=== PATIENT | male | born 1985 | race Caucasian/White ===

== ENCOUNTER → 2019-09-15 | Outpatient (CLI) | payer BC ==
[~2019-09-15] MED LIST: HYDR-2890 PO
--- NOTE | 2019-09-15 14:08 | Diagnostic Imaging Report ---
EXAMINATION: Magnetic resonance imaging of the left knee without intravenous contrast DATE: September 15, 2019. COMPARISON: None. INDICATION: 34-year-old male, injury of the left knee. TECHNIQUE: Multiplanar, multisequence non contrast enhanced MR imaging was accomplished. FINDINGS: MENISCI: The medial meniscus is intact. The lateral meniscus is intact. LIGAMENTS AND TENDONS: The patient is status post anterior cruciate ligament reconstruction. The graft is intact. The posterior cruciate ligament is intact. The medial collateral ligament is intact. The iliotibial band, mid third lateral capsular ligament, fibular collateral ligament, biceps femoris tendon and conjoined tendon are intact. There are postoperative related changes of the patellar tendon which is otherwise intact. The distal quadriceps tendon is intact. JOINT: There is a full-thickness signal abnormality in the cartilage of the medial patellar facet measuring 3 mm in width. The medial and lateral compartment cartilage is intact. There is no knee joint effusion, prominent synovitis, or intra-articular body. BONE: There are tibial and femoral tunnels for the anterior cruciate ligament reconstruction. There is no acute fracture, bone contusion, or evidence of osteonecrosis. BURSAE AND SOFT TISSUES: There is a small slitlike Patel's cyst. IMPRESSION: 1. Intact medial and lateral meniscus. 2. Status post anterior cruciate ligament with intact graft. Intact posterior cruciate ligament. Additional ligaments and tendons are intact. 3. Mild patellofemoral compartment osteoarthritis. No knee joint effusion. 4. No acute fracture, bone contusion, or evidence of osteonecrosis. 5. Small slitlike Patel's cyst. Dictated by: Dictated on workstation # [id number]
== END ==
LOC: RAD 13:03
PROVIDERS: ATTEND Nurse Practitioner
DX: M17.12 Unilateral primary osteoarthritis, left knee (principal); M71.22 Synovial cyst of popliteal space [Baker], left knee; S86.812D Strain of other muscle(s) and tendon(s) at lower leg level, left leg, subsequent encounter; S83.282D Other tear of lateral meniscus, current injury, left knee, subsequent encounter
CPT/HCPCS: 73721

== ENCOUNTER 2020-03-30 09:21 | Emergency (ER) | payer BC, OTHER ==
[~2020-03-30] VITALS: Ht 182 cm; Wt 102.0 kg
[~2020-03-30 09:21] MED LIST changes: -LOSA50TA63
[2020-03-30 09:37] LABS: BASOPHILS % (AUTO) 0 % (0-10); EOSINOPHILS # (AUTO) 0.2 10^3/uL (0.0-0.3); EOSINOPHILS % (AUTO) 2 % (0-10); HEMATOCRIT 45 % (40-54); HEMOGLOBIN 15.4 G/DL (13.3-17.7); LYMPHOCYTES # (AUTO) 2.2 X 10^3 (1.0-4.0); LYMPHOCYTES % (AUTO) 26 % (12-44); MEAN CORPUSCULAR HEMOGLOBIN 28 PG (25-34); MEAN CORPUSCULAR HGB CONC 34 G/DL (32-36); MEAN CORPUSCULAR VOLUME 81 FL (80-99); MEAN PLATELET VOLUME 9.9 FL (7.4-10.4); MONOCYTES # (AUTO) 0.8 X 10^3 (0.0-1.0); MONOCYTES % (AUTO) 10 % (0-12); NEUTROPHILS # (AUTO) 5.3 X 10^3 (1.8-7.8); NEUTROPHILS % (AUTO) 62 % (42-75); PLATELET COUNT 294 10^3/uL (130-400); WHITE BLOOD COUNT 8.4 10^3/uL (4.3-11.0)
[2020-03-30] MEDS ORDERED: LOSA50TA63 (09:42)
[2020-03-30 09:55] LABS: ALBUMIN 4.5 GM/DL (3.2-4.5); CHLORIDE 104 MMOL/L (98-107); POTASSIUM 4.3 MMOL/L (3.6-5.0); SODIUM 136 MMOL/L (135-145)
[2020-03-30 09:56] LABS: CALCIUM 9.2 MG/DL (8.5-10.1); PROTHROMBIN TIME PATIENT 13.5 SEC (12.2-14.7)
[2020-03-30 09:57] LABS: GLUCOSE 99 MG/DL (70-105); TOTAL PROTEIN 7.3 GM/DL (6.4-8.2)
[2020-03-30 09:58] LABS: CARBON DIOXIDE 26 MMOL/L (21-32)
[2020-03-30 09:59] LABS: BILIRUBIN,TOTAL 0.5 MG/DL (0.1-1.0)
[2020-03-30 10:01] LABS: ALKALINE PHOSPHATASE 74 U/L (40-136); CREATININE SERUM 0.89 MG/DL (0.60-1.30); GFR ESTIMATED > 60
[2020-03-30 10:02] LABS: BUN/CREATININE RATIO 17
--- NOTE | 2020-03-30 10:02 | Diagnostic Imaging Report ---
INDICATION: Chest tightness. TECHNIQUE: A frontal chest was obtained at 10:00 AM. FINDINGS: The heart and mediastinal silhouette are normal in appearance. The lungs appear clear. There is no pneumothorax or pleural fluid. IMPRESSION: Negative chest. Dictated by: Dictated on workstation # [id number]
[2020-03-30 10:04] LABS: ALANINE AMINOTRANSFERASE 22 U/L (0-55)
--- NOTE | 2020-03-30 10:06 | ED Chest Pain ---
General Chief Complaint: Chest Pain Stated Complaint: CHEST PAIN Nursing Triage Note: ARRIVED VIA AMB TO ROOM 03 WITHOUT DIFFICULTY. COMPLAINS OF CHEST TIGHTNESS X24 HOURS. SENT OVER FROM DR BREWSTER OFFICE. Nursing Sepsis Screen: No Definite Risk Source: patient Exam Limitations: no limitations History of Present Illness Date Seen by Provider: Mar 30, 2020 Time Seen by Provider: 09:23 Initial Comments Here with report of intermittent chest tightness that is central and nonradiating. Onset yesterday. Does not last long. Does note that it comes and goes and happens regardless of activity. It is not reproducible. Denies any recent injury. Does have history of hypertension and admits that he did not take his medicine yesterday. He states he's pretty good about it but not daily. Follows with Dr. Vance. Denies nausea, vomiting, sweating, weakness or other concerns. Seen at [facility] [facility] urgent care. ASA 324 mg by mouth administered there. Timing/Duration: 24 hours, intermittent Severity/Quality: moderate, tightness Location: central Radiation: no radiation Activities at Onset: none Prior CP/Workup: no prior chest pain, no prior cardiac workup ASA po MIGRATORY FARM HAND: Yes NTG SL MIGRATORY FARM HAND: No Associated Symptoms: No abdominal pain, No back pain, No diaphoresis, No dizziness, No fatigue, No fever/chills, No nausea/vomiting, No shortness of breath, No weakness Allergies and Home Medications Allergies Coded Allergies: No Known Drug Allergies (Unverified , 12/05/11) Home Medications Hydrocodone Bit/Acetaminophen 1 Each Tablet, 1 EACH PO NEEDED Prescribed by: RUPINDER MELCHOR on 12/05/11 3997 Patient Home Medication List Home Medication List Reviewed: Yes Review of Systems Review of Systems Constitutional: see HPI; No chills, No fever EENTM: No Symptoms Reported Respiratory: Denies Cough, Denies Shortness of Air Cardiovascular: Chest Pain; Denies Edema Gastrointestinal: Denies Abdomen Distended, Denies Nausea, Denies Vomiting Genitourinary: No Symptoms Reported Musculoskeletal: No joint pain, No muscle pain Skin: no symptoms reported Psychiatric/Neurological: No Symptoms Reported Past Azrpjgz-Vyfzlp-Hooiht Hx Past Med/Social Hx: Reviewed Nursing Past Med/Soc Hx Patient Social History Alcohol Use: Denies Use Recreational Drug Use: No Smoking Status: Never a Smoker Recent Foreign Travel: No Contact w/Someone Who Travel: No Recent Infectious Disease Expo: No Recent Hopitalizations: No Past Medical History Surgeries: Yes Orthopedic Respiratory: No Cardiac: Yes Hypertension Neurological: No Genitourinary: No Gastrointestinal: No Musculoskeletal: No Endocrine: No HEENT: No Cancer: No Psychosocial: No Integumentary: No Family Medical History Reviewed Nursing Family Hx Heart Disease Physical Exam Vital Signs Vital Signs - First Documented 03/30/20 09:21 Temp 37.0 Pulse 75 Resp 16 B/P (MAP) 147/89 (108) Pulse Ox 98 O2 Delivery Room Air Capillary Refill : Less Than 3 Seconds Height, Weight, BMI Height: '" Weight: lbs. oz. kg; 30.00 BMI Method:Stated General Appearance: No Apparent Distress, WD/WN HEENT: PERRL/EOMI, Pharynx Normal Neck: Non Tender, Supple Respiratory: Chest Non Tender, Lungs Clear, Normal Breath Sounds Cardiovascular: Regular Rate, Rhythm, No Murmur Gastrointestinal: Non Tender, Soft Extremity: Normal Range of Motion, Non Tender Neurologic/Psychiatric: Alert, Oriented x3 Skin: Normal Color, Warm/Dry Progress/Results/Core Measures Results/Orders Lab Results Laboratory Tests Test 03/30/20 09:30 Range/Units White Blood Count 8.4 4.3-11.0 10^3/uL Red Blood Count 5.57 4.35-5.85 10^6/uL Hemoglobin 15.4 13.3-17.7 G/DL Hematocrit 45 40-54 % Mean Corpuscular Volume 81 80-99 FL Mean Corpuscular Hemoglobin 28 25-34 PG Mean Corpuscular Hemoglobin Concent 34 32-36 G/DL Red Cell Distribution Width 13.5 10.0-14.5 % Platelet Count 294 130-400 10^3/uL Mean Platelet Volume 9.9 7.4-10.4 FL Neutrophils (%) (Auto) 62 42-75 % Lymphocytes (%) (Auto) 26 12-44 % Monocytes (%) (Auto) 10 0-12 % Eosinophils (%) (Auto) 2 0-10 % Basophils (%) (Auto) 0 0-10 % Neutrophils # (Auto) 5.3 1.8-7.8 X 10^3 Lymphocytes # (Auto) 2.2 1.0-4.0 X 10^3 Monocytes # (Auto) 0.8 0.0-1.0 X 10^3 Eosinophils # (Auto) 0.2 0.0-0.3 10^3/uL Basophils # (Auto) 0.0 0.0-0.1 10^3/uL Prothrombin Time 13.5 12.2-14.7 SEC INR Comment 1.0 0.8-1.4 Activated Partial Thromboplast Time 34 24-35 SEC D-Dimer < 0.27 0.00-0.49 UG/ML Sodium Level 136 135-145 MMOL/L Potassium Level 4.3 3.6-5.0 MMOL/L Chloride Level 104 98-107 MMOL/L Carbon Dioxide Level 26 21-32 MMOL/L Anion Gap 6 5-14 MMOL/L Blood Urea Nitrogen 15 7-18 MG/DL Creatinine 0.89 0.60-1.30 MG/DL Estimat Glomerular Filtration Rate > 60 BUN/Creatinine Ratio 17 Glucose Level 99 70-105 MG/DL Calcium Level 9.2 8.5-10.1 MG/DL Corrected Calcium 8.8 8.5-10.1 MG/DL Magnesium Level 2.0 1.6-2.4 MG/DL Total Bilirubin 0.5 0.1-1.0 MG/DL Aspartate Amino Transf (AST/SGOT) 20 5-34 U/L Alanine Aminotransferase (ALT/SGPT) 22 0-55 U/L Alkaline Phosphatase 74 40-136 U/L Myoglobin 41.3 10.0-92.0 NG/ML Troponin I < 0.028 <0.028 NG/ML Total Protein 7.3 6.4-8.2 GM/DL Albumin 4.5 3.2-4.5 GM/DL My Orders Orders - TAMEKA OLIVERA MD Cbc With Automated Diff (03/30/20) Magnesium (03/30/20:) Chest 1 View, Ap/Pa Only (03/30/20) Ekg Tracing (03/30/20) Comprehensive Metabolic Panel (03/30/20) Myoglobin Serum (03/30/20) Protime With Inr (03/30/20) Partial Thromboplastin Time (03/30/20) O2 (03/30/20) Monitor-Rhythm Ecg Trace Only (9/22/20 09:25) Lipid Panel (03/31/20 06:00) Ed Iv/Invasive Line Start (03/30/20 09:25) Troponin I (03/30/20 09:25) Fibrin Degradation Products (03/30/20 09:39) Vital Signs/I&O 03/30/20 09:21 Temp 37.0 Pulse 75 Resp 16 B/P (MAP) 147/89 (108) Pulse Ox 98 O2 Delivery Room Air Blood Pressure Mean: 108 Progress Progress Note : Progress Note Seen and evaluated. IV, labs, EKG and chest x-ray ordered. Blood pressure improved down patient states that he actually feels much better now after taking his blood pressure medicine this morning. Monitor patient. 1135: Remains free of persistent pain. Occasionally has twinges. Patient admits to drinking 10-14 coffee a day. We will give Pepcid 20 mg IV now. Toradol 30 mg IV ordered as well. I discussed the case with Dr. Faust and he will see the patient and office today at 1330. I will send a copy of the chart over to him. Discharged home with return precautions. Patient verbalize understanding instructions and agreement with plan. Initial ECG Impression Date: Mar 30, 2020 Initial ECG Impression Time: 09:21 Initial ECG Rate: 69 Initial ECG Rhythm: Normal Sinus Initial ECG Impression: Normal Initial ECG Comparisson: No Previous ECG Available Comment Sinus rhythm with normal but leftward axis. No evidence of ST elevation OR. No previous available for comparison. Interpreted by me. Diagnostic Imaging Diagonstic Imaging: Xray Plain Films/CT/US/NM/MRI: chest Comments [facility] [place] [place] NAME: [facility]ITU [facility]DA[facility] REC#: [id number] PT STATUS: REG ER : 1985 PHYSICIAN: TAMEKA OLIVERA MD ADMIT DATE: 03/30/20/ER Signed Date of Exam:03/30/20 CHEST 1 VIEW, AP/PA ONLY INDICATION: Chest tightness. TECHNIQUE: A frontal chest was obtained at 10:00 AM. FINDINGS: The heart and mediastinal silhouette are normal in appearance. The lungs appear clear. There is no pneumothorax or pleural fluid. IMPRESSION: Negative chest. Dictated by: Dictated on workstation # [id number] Dict: 03/30/20 1001 Trans: 03/30/20 1108 [id number] Interpreted by: MATT MONSALVE MD Electronically signed by: MATT MONSALVE MD 03/30/20 1108 Reviewed: Reviewed by Me Departure Impression Primary Impression: Chest pain Qualified Codes: R07.9 - Chest pain, unspecified Disposition: 01 HOME, SELF-CARE Condition: Stable Departure-Patient Inst. Decision time for Depature: 11:42 Referrals: ALEXIS VANCE DO (PCP/Family) Primary Care Physician FARIHA FAUST MD Patient Instructions: Chest Pain (DC) Add. Discharge Instructions: All discharge instructions reviewed with patient and/or family. Voiced understanding. You may take Pepcid or the generic famotidine 20 mg daily as needed for stomach upset. You should decrease your coffee intake daily. Follow-up with Dr. Faust today at his office at 1:30 PM. Return for worse pain, weakness, breathing problems, sweating, vomiting or other concerns as needed. Work/School Note: Work Release Form Date Seen in the Emergency Department: Mar 30, 2020 Return to Work: Mar 31, 2020 Restrictions: No Restrictions Copy Copies To 1: FARIHA FAUST MD, TIMOTHY D MD Mar 30, 2020 10:06
--- NOTE | 2020-03-30 10:32 | NUR ---
RESTING IN BED ET DENIES NEEDS AT THIS TIME.
--- NOTE | 2020-03-30 11:28 | NUR ---
IN TALKING TO THE PT AT THIS TIME.
[2020-03-30] MEDS ORDERED: FAMOTIDINE 20MG/2ML IV (PEPCID) IV STA (11:40)
[2020-03-30] MEDS ORDERED: KETOROLAC 30 MG/ML VIAL IVP STA (11:40)
[2020-03-30 11:53] VITALS: BP 141/78
== END 2020-03-30 11:53 | disposition home or self-care (01) ==
LOC: EDUNIT# 09:21 → ER 09:24
DX: R07.9 Chest pain, unspecified (principal); Z82.49 Family history of ischemic heart disease and other diseases of the circulatory system
CPT/HCPCS: 36415; 71045; 80053; 83735; 83874; 84484; 85025; 85379; 85610; 85730; 93005; 93041

== ENCOUNTER → 2020-03-30 | Outpatient (CLI) | payer OTHER ==
[~2020-03-30] MED LIST changes: +LOSA50TA63
== END ==
LOC: CARD 14:57
PROVIDERS: ATTEND Internal Medicine Cardiovascular Disease
DX: I11.9 Hypertensive heart disease without heart failure (principal); Z82.49 Family history of ischemic heart disease and other diseases of the circulatory system
CPT/HCPCS: 93306

== ENCOUNTER → 2020-03-31 | Outpatient (CLI) | payer OTHER ==
[~2020-03-31] VITALS: Ht 185 cm; Wt 125.0 kg
[~2020-03-31] MED LIST changes: +CATHETER FLUSH 10 ML SYR IV PRN; +LOSA50TA63
[2020-03-31 09:04] VITALS: BP 128/74
--- NOTE | 2020-03-31 11:14 | Cardiology Stress Test Report ---
Stress Test Report Date of Procedure/Referring: Date of Procedure: Mar 31, 2020 PCP Fariha Faust MD Admitting Physician Juaquin Welch DO Indications: Chest pain Baseline Blood Pressure: Blood Pressure Systolic: 128 Blood Pressure Diastolic: 74 Vital Signs Date Time Temp Pulse Resp B/P (MAP) Pulse Ox O2 Delivery O2 Flow Rate FiO2 03/31/20 09:04 58 14 128/74 (92) 99 Room Air Baseline Vital Signs Vital Signs Date Time Temp Pulse Resp B/P (MAP) Pulse Ox O2 Delivery O2 Flow Rate FiO2 03/31/20 09:04 58 14 128/74 (92) 99 Room Air Baseline EKG: Baseline EKG: normal sinus rhythm Summary: After explaining the procedure and details to the patient, he signed the consent and was brought to the stress nuclear laboratory. Patient exercised on standard Leon protocol, EKG, heart rate and blood pressure were monitored continuously, resting and stress doses of radio tracer were injected, imaging was acquired and reviewed in the short axis, horizontal long axis and vertical long axis views Patient was able to exercise for a total of 11 minutes on Leon protocol, METs 12.1 Maximum heart rate 166 Maximum blood pressure 233/61 Stress EKG, Minimal nondiagnostic changes Recovery EKG, Return to baseline TID: 0.99 SSS: 0 SDS: 0 EF: 57 Conclusion: 1. Excellent exercise tolerance for a total of 11 minutes on standard Leon protocol, 12.1 METs achieving 90 percent of maximum expected heart rate 2. Hypertensive response to exercise with peak blood pressure 233/61 and return to baseline during recovery 3. Minimal nondiagnostic EKG changes with exercise returned to baseline during recovery 4. Typical male pattern with no significant ischemia or infarction on SPECT images 5. Normal left ventricular size, EF 57 percent FARIHA FAUST MD Mar 31, 2020 11:14
== END ==
LOC: CARD 07:19
PROVIDERS: ATTEND Internal Medicine Cardiovascular Disease
DX: I10 Essential (primary) hypertension (principal); R07.9 Chest pain, unspecified; Z82.49 Family history of ischemic heart disease and other diseases of the circulatory system
CPT/HCPCS: 78452; 93017; A9502

== ENCOUNTER 2021-06-15 07:13 | Outpatient (RCR) | payer OTHER ==
[~2021-06-15] VITALS: Ht 185.4 cm; Wt 123.5 kg
[~2021-06-15 07:13] MED LIST changes: -CATHETER FLUSH 10 ML SYR IV PRN
[2021-06-16] MEDS ORDERED: PANT40TA2 PO (12:58)
== END 2021-06-16 08:56 | disposition home or self-care (01) ==
LOC: PREOP 07:13
PROVIDERS: ATTEND Surgery
DX: Z01.812 Encounter for preprocedural laboratory examination (principal); K29.70 Gastritis, unspecified, without bleeding; K21.9 Gastro-esophageal reflux disease without esophagitis; Z20.822 Contact with and (suspected) exposure to COVID-19
CPT/HCPCS: 87635

== ENCOUNTER 2021-06-16 10:49 | Day surgery (SDC) | payer BC ==
[~2021-06-16] VITALS: Ht 185.4 cm; Wt 123.5 kg
[2021-06-16] VITALS (8 sets, daily range): BP systolic 120–134; BP diastolic 61–86
[2021-06-16] MEDS ORDERED: LACTATED RINGERS 1,000 ML IV STA (10:52)
[2021-06-16] MEDS ORDERED: LACTATED RINGERS 1,000 ML IV ONE (10:56)
[2021-06-16] MEDS ORDERED: HURRICAINE EXT TUBE (BENZOCAINE) XX PRN (11:00)
[2021-06-16] MEDS ORDERED: PROPOFOL INJECTION 50 ML IV ONE (12:26)
[2021-06-16] MEDS ORDERED: MIDAZOLAM 2 MG/2 ML (VERSED) VIAL ONE (12:26)
--- NOTE | 2021-06-16 12:57 | Progress Note-Post Operative ---
Post-Operative Progess Note Surgeon (s)/Information Systems Security Officer (s) Surgeon JACK POLANCO DO Information Systems Security Officer: na Pre-Operative Diagnosis gastritis, gerd Post-Operative Diagnosis mucosal change proximal esophagus Procedure & Operative Findings Date of Procedure 06/16/21 Procedure Performed/Findings egd c biopsies Anesthesia Type per director of residential services Estimated Blood Loss Estimated blood loss (mL): none Specimens/Packing Specimens Removed antrum, ge, and proximal esophagus JACK POLANCO DO Jun 16, 2021 12:57
[2021-06-16] MEDS ORDERED: PANT40TA2 PO (12:58)
--- NOTE | 2021-06-16 12:59 | Discharge Inst-Simple/Standard ---
Discharge Inst-Standard Discharge Medications New, Converted or Re-Newed RX: Transmitted to Pharmacy Patient Instructions/Follow Up Plan of Care/Instructions/FU: 1-2 week Matilda (after gallbladder workup) Activity as Tolerated: Yes Discharge Diet: Regular Diet JACK POLANCO DO Jun 16, 2021 12:59
--- NOTE | 2021-06-16 19:50 | OPERATIVE REPORT ---
DATE OF SERVICE: 06/16/2021 PREOPERATIVE DIAGNOSES: Gastritis and gastroesophageal reflux disease. POSTOPERATIVE DIAGNOSIS: Mucosal change, proximal esophagus. PROCEDURE: EGD with biopsies. SURGEON: Jack Grey DO ANESTHESIA: Per INSULATOR CUTTER AND FORMER. ESTIMATED BLOOD LOSS: None. COMPLICATIONS: None. INDICATIONS: The patient is a 36-year-old male with gastritis symptoms and GERD symptoms. He understands risks and benefits of procedure and wished to proceed. Consent was signed in the chart. DESCRIPTION OF PROCEDURE: The patient was taken to the endoscopy suite, placed in left lateral recumbent position. Timeout was performed. Scope was inserted in mouth, down the esophagus, stomach and into the duodenum without difficulty. There were no polyps, masses or ulcerations within the duodenum. Scope was slowly retracted back into the stomach where it was further insufflated. No polyps, masses or ulcerations. Biopsy of the antrum was obtained. Scope was retroflexed noting no other pathology. Scope was returned to its normal position, slowly withdrawn to distal esophagus. Biopsy of the GE junction was obtained. No polyps, masses or ulcerations. Scope was continuously retracted back. Slight mucosal change in the proximal esophagus. Biopsy of this area was obtained. Scope was slowly retracted back until completely removed. The patient tolerated procedure well without any complications, taken to recovery room in stable condition. RECOMMENDATIONS: The patient will continue on Protonix 40 mg daily. We will work up his gallbladder and proceed with further recommendations pending those results. Job ID: [id number] DocumentID: [id number] Dictated Date: 06/16/2021 13:04:02 Ui Ux Engineer Date: 06/16/2021 19:50:07 Dictated By: JACK GREY DO
== END 2021-06-16 13:55 | disposition home or self-care (01) ==
LOC: ENDO 10:49
PROVIDERS: ATTEND Surgery
DX: K29.50 Unspecified chronic gastritis without bleeding (principal); K21.00 Gastro-esophageal reflux disease with esophagitis, without bleeding; I10 Essential (primary) hypertension; E66.9 Obesity, unspecified; Z79.899 Other long term (current) drug therapy

== ENCOUNTER → 2021-06-17 | Outpatient (CLI) | payer BC ==
[~2021-06-17] MED LIST changes: +PANT40TA2 PO
--- NOTE | 2021-06-17 08:37 | Diagnostic Imaging Report ---
PROCEDURE: US Gallbladder. TECHNIQUE: Multiple real-time grayscale images were obtained over the right upper quadrant in various projections. INDICATION: Epigastric pain. COMPARISON: None FINDINGS: Liver is normal in size, shape, and echogenicity. There is no focal mass. There is no sonographic evidence of intra or extrahepatic biliary ductal dilatation. Gallbladder is within normal limits at 5 mm in diameter. Gallbladder is identified and is filled with gallstones. This results in a Walker shadow complex. There is no appreciable pericholecystic free fluid. There is no appreciable gallbladder wall thickening. Head and proximal body of pancreas are unremarkable. Distal body and tail are not well visualized secondary to overlying bowel gas. Visualized portions of the abdominal aorta and IVC are unremarkable. Right kidney measures 11.6 cm in length and has a normal appearance. There is no evidence of hydronephrosis, calculus, nor mass. There is no ascites. IMPRESSION: Multiple gallstones, but no sonographic evidence of acute cholecystitis. Dictated by: Dictated on workstation # [id number]
== END ==
LOC: RAD 07:15
PROVIDERS: ATTEND Surgery
DX: K80.80 Other cholelithiasis without obstruction (principal)
CPT/HCPCS: 76705

== ENCOUNTER 2021-08-25 05:33 | Outpatient (CLI) | payer BC ==
[~2021-08-25] VITALS: Ht 185.5 cm; Wt 122.7 kg
== END 2021-08-25 10:36 | disposition home or self-care (01) ==
LOC: PREOP 05:33
PROVIDERS: ATTEND Surgery
DX: Z01.818 Encounter for other preprocedural examination (principal)

== ENCOUNTER 2021-09-01 07:35 | Day surgery (SDC) | payer BC ==
[2021-09-01] VITALS (11 sets, daily range): BP systolic 115–148; BP diastolic 60–96
[~2021-09-01] VITALS: Ht 185.5 cm; Wt 122.7 kg
[2021-09-01] MEDS ORDERED: ceFAZolin 2 GM IV Premixed 50 ML IV ONE (07:45)
--- NOTE | 2021-09-01 07:55 | Progress Note-Pre Operative ---
Pre-Operative Progress Note H&P Reviewed The H&P was reviewed, patient examined and no changes noted. Date Seen by Provider: Sep 01, 2021 Time Seen by Provider: 07:55 Date H&P Reviewed: Sep 01, 2021 Time H&P Reviewed: 07:55 Pre-Operative Diagnosis: symptomatic cholelithiasis JACK POLANCO DO Sep 01, 2021 07:55
[2021-09-01] MEDS: LACTATED RINGERS 1,000 ML IV PRN ×2 (08:06→10:41)
[2021-09-01] MEDS ORDERED: LIDOCAINE/EPI 1%-1:200,000 (XYLOCAINE) 30 ML VIAL ONE (09:06)
[2021-09-01] MEDS ORDERED: ROCURONIUM 10 MG/ML 5 ML SYRINGE IV ONE ×2 (09:09→10:07)
[2021-09-01] MEDS ORDERED: ONDANSETRON 4 MG/2 ML (SDV) Z0FRAN ONE (09:09)
[2021-09-01] MEDS ORDERED: fentaNYL INJ 100 MCG/2 ML AMP ONE ×3 (09:09→11:15)
[2021-09-01] MEDS ORDERED: LIDOCAINE PF 2% 5 ML (XYLOCAINE) VIAL ONE (09:09)
[2021-09-01] MEDS ORDERED: GLYCOPYRROLATE 0.2 MG/ML (ROBINUL) 2 ML VIAL ONE ×2 (09:09→10:44)
[2021-09-01] MEDS ORDERED: NEOSTIGMINE 3 MG/3 ML VIAL ONE (09:09)
[2021-09-01] MEDS ORDERED: proPOfol 200 MG/20 ML (DIPRIVAN) VIAL IV ONE ×2 (09:09→09:31)
[2021-09-01] MEDS ORDERED: MIDAZOLAM 2 MG/2 ML (VERSED) VIAL ONE (09:09)
[2021-09-01] MEDS ORDERED: HYDROmorphone 2 MG/ML VIAL (DILAUDID) ONE (09:54)
[2021-09-01] MEDS ORDERED: KETOROLAC 30 MG/ML VIAL ONE (10:43)
[2021-09-01] MEDS ORDERED: DOCU-143 PO (10:53)
[2021-09-01] MEDS ORDERED: ACHD5005 PO (10:53)
--- NOTE | 2021-09-01 10:54 | Discharge Inst-Simple/Standard ---
Discharge Inst-Standard Discharge Medications New, Converted or Re-Newed RX: Transmitted to Pharmacy Patient Instructions/Follow Up Plan of Care/Instructions/FU: 3 weeks Matilda Activity as Tolerated: No Discharge Diet: Regular Diet Other Inst to Patient Follow up Appt: Make appointment for 3 weeks. Instructions: No lifting greater than 10 pounds. No strenuous activity. May shower in 24 hours, no tub bath or soaking. Use incentive spirometer at home as directed. No Smoking Skin/Wound Care: You have special glue over incision, it will fall off on it's own. Symptoms to Report: Appetite Changes, Extremity Discoloration, Numbness/Tingling, Swelling Increased, Bleeding Excessive, Eyesight Changes, Pain Increased, Urine Color Change, Constipation(Persistent), Fever over 101 degree F, Pain/Pressure in chest, Urinating Difficulty, Cough Up/Vomit Blood, Heart Beat Irreg/Pounding, Pain/Pressure in jaw, Vaginal Bleeding Increase, Cramps in feet or legs, Lightheadedness, Pain/Pressure in shoulder, Diarrhea(Persistent), Memory Changes Suddenly, Questions/Concerns, Weight gain consecutive days, Dizziness/Fainting, Nausea/Vomiting, Shortness of Breath, Weight gain over 2 pounds. If eyes or skin turn yellow notify physician. If questions or concerns contact your physician Or seek help at emergency department. JACK POLANCO DO Sep 01, 2021 10:54
--- NOTE | 2021-09-01 10:56 | Progress Note-Post Operative ---
Post-Operative Progess Note Surgeon (s)/Converting Operator (s) Surgeon JACK POLANCO DO Converting Operator: Dr. Gutierrez to assist in retraction dissection and closure Pre-Operative Diagnosis symptomatic cholelithiasis Post-Operative Diagnosis same Procedure & Operative Findings Date of Procedure 09/01/21 Procedure Performed/Findings PROCEDURE: Laparoscopic cholecystectomy with intraoperative cholangiogram. COMPLICATIONS: None. PROCEDURE: The patient was taken to the operating suite and was prepped and draped in sterile fashion. A surgical pause was performed. Just superior to the umbilicus, a 12 mm incision was made. Dissection was taken down to the fascia, which was then scored and grasped with a Stef and the abdomen was then entered. A 0 Vicryl suture was placed in a [id number] fashion and a Monsalve trocar was placed and secured. Pneumoperitoneum was achieved. A 5mm trochar place in the subxyphoid and 2 in the right upper quadrant. The gallbladder was then grasped and elevated. Multliple adhesions had to be taken down with blunt and cautery dissectsion. The gallbladder was intrahepatic. The cystic duct, and cystic artery were then dissected out. Clip was placed on the distal portion of the cystic duct which was then partially transected. An arrow catheter was inserted into the duct. The cholangiogram was then performed. No filing defects and contrast made its way into the duodenum. Catheter removed. Clips were placed on proximal portion of the cystic duct and then the duct was then transected. Clips were placed along the proximal and distal portion of the cystic artery which was then transected. Hook cautery was used to dissect the gallbladder from the gallbladder fossa achieving hemostasis. The gallbladder was placed in an Endobag and removed through the 12 mm trocar site. The abdomen was then reinspected. Copious amounts of irrigation were used to irrigate the abdomen and there were no signs of active bleeding. Hemostasis had been achieved. The 12 mm fascial defect was then closed with 0 Vicryl suture that had been placed in a xazwkr-[id number]-ehmvm fashion. The abdomen was then desufflated, the trocars were removed. The abdomen was then washed and dried. The skin was then closed using 4-0 Monocryl in a subcuticular fashion. The abdomen was washed and dried and Skin Affix was place over incisions. Patient tolerated the procedure well without any complications and was taken to the recovery room in stable condition. Anesthesia Type general Estimated Blood Loss Estimated blood loss (mL): minimal Specimens/Packing Specimens Removed gallbladder JACK POLANCO DO Sep 01, 2021 10:56
[2021-09-01] MEDS ORDERED: ONDANSETRON 4 MG/2 ML (SDV) Z0FRAN IVP PRN (11:00)
[2021-09-01] MEDS ORDERED: fentaNYL INJ 100 MCG/2 ML AMP IVP ONE (11:00)
[2021-09-01] MEDS ORDERED: HYDROmorphone 2 MG/ML VIAL (DILAUDID) IV ONE (11:00)
--- NOTE | 2021-09-01 12:01 | Anesthesia-General Post-Op ---
General Patient Condition Mental Status/LOC: Same as Preop Cardiovascular: Satisfactory Nausea/Vomiting: Absent Respiratory: Satisfactory Pain: Controlled Complications: Absent Post Op Complications Complications None Follow Up Care/Instructions Patient Instructions None needed. Anesthesia/Patient Condition Patient Condition Patient is doing well, no complaints, stable vital signs, no apparent adverse anesthesia problems. No complications reported per nursing. D/C home per [facility] Criteria: Yes JANELLE STONE CRNA Sep 01, 2021 12:01
[2021-09-01] MEDS ORDERED: HYDROcodone/APAP 5 MG/325 MG (LORTAB) TAB ONE (12:31)
[2021-09-01] MEDS ORDERED: HYDROcodone/APAP 5 MG/325 MG (LORTAB) TAB PO ONE (12:45)
--- NOTE | 2021-09-01 13:21 | Diagnostic Imaging Report ---
Indication: Epigastric pain. Comparison: Liver gallbladder sonogram dated 06/17/2021 Total fluoroscopy time: 50 seconds Total number fluoroscopic images saved: 62 Findings: Multiple intraoperative image intensifier views of the right upper abdominal quadrant were obtained during intraoperative angiogram. Images provided show contrast filling the common bile duct, as well as reflux into the left and right intrahepatic biliary ducts. There is also reflux of the pancreatic duct. No large intraluminal filling defect is seen. Contrast empties into the small bowel, as expected. Impression: Fluoroscopic guidance provided during laparoscopic cholangiogram as above. Dictated by: Dictated on workstation # [id number]
== END 2021-09-01 13:18 | disposition home or self-care (01) ==
LOC: SDC 07:35
PROVIDERS: ATTEND Surgery
DX: K80.10 Calculus of gallbladder with chronic cholecystitis without obstruction (principal); I10 Essential (primary) hypertension; K21.9 Gastro-esophageal reflux disease without esophagitis; Z79.82 Long term (current) use of aspirin; Z79.899 Other long term (current) drug therapy
CPT/HCPCS: 76000; 87081; 88304; 94664